=== PATIENT | female | born 1945 | race Caucasian/White ===

== ENCOUNTER 2019-01-12 09:44 | Outpatient (CLI) | payer MEDICARE ==
--- NOTE | 2019-01-12 10:46 | ULT ---
THYROID ULTRASOUND: HISTORY: Thyroid nodule. FINDINGS: Thyroid isthmus measures 0.2 cm. Right thyroid lobe measures 2.6 x 2.4 x 4.7 cm. Left thyroid lobe measures 1.7 x 1.7 x 4.2 cm. Multiple cystic nodules and solid nodules throughout the thyroid gland. [employer] solid nodule i n the thyroid gland measures 1.0 x 0.8 x 0.6 cm and is located in the lower pole of the left thyroid lobe. Secretary To [employer] solid nodule in the right thyroid lobe measures 1.0 x 1.0 x 0.7 cm and i s located in the mid pole. IMPRESSION: Multiple solid and cystic nodules throughout the thyroid gland. The solid nodules have a TI-RADS calc ulator score of TR3, mildly suspicious. Follow-up imaging in one year. Transcribed Date/Time: 01/12/2019 10:49 AM
== END 2019-01-12 09:45 | disposition home or self-care (01) ==
LOC: BICULT 09:44
PROVIDERS: ATTEND Nurse Practitioner Family
DX: E04.2 Nontoxic multinodular goiter (principal); R93.89 Abnormal findings on diagnostic imaging of other specified body structures
CPT/HCPCS: 76536

== ENCOUNTER 2019-01-17 09:23 | Outpatient (CLI) | payer MEDICARE ==
--- NOTE | 2019-01-17 09:44 | BD ---
EXAM: DEXA bone density examination HISTORY: 73-year-old postmenopausal female for screening COMPARISON: None FINDINGS: L1--bone mineral density 1.520 g/sq cm; T score 4.8 L2--bone mineral density 1.820 g/sq cm; T score 7.2 L3--bone mineral density 1.985 g/sq cm; T score 8.2 L4--bone mineral density 1.715 g/sq cm; T score 5. Total L1-L4--bone mineral density 1.758 g/sq cm; T score 6.5 Left femoral neck--bone mineral density0.845; T score 0.0 Total proximal left femur--bone mineral density 1.131; T score 1.5 IMPRESSION: Normal bone mineral density.
== END 2019-01-17 09:24 | disposition home or self-care (01) ==
LOC: BICMAMMO 09:23
PROVIDERS: ATTEND Nurse Practitioner Family
DX: Z13.820 Encounter for screening for osteoporosis (principal)
CPT/HCPCS: 77080

== ENCOUNTER 2019-09-22 06:22 | Outpatient (CLI) | payer MEDICARE, OTHER ==
[2019-09-22 13:58] LABS: INR-International Normal Ratio 0.9; PTT 27.4 sec (22.9-36.1); Prothrombin Time 12.5 sec (12.0-14.7)
[2019-09-22 14:10] LABS: Mean Corpuscular HGB CONC 32.4 g/dL (32.0-36.0); Mean Corpuscular Hemoglobin 32.2 pg (27.0-31.0); Mean Corpuscular Volume 99.5 fL (78.0-98.0); Mean Platelet Volume 7.5 fL (7.4-10.4); Platelet Count 241 thou/uL (130-400); RBC Distribution Width 12.4 % (11.5-14.5); Red Blood Cell (RBC) Count 4.36 mill/uL (4.20-5.40); White Blood Cell (WBC) Count 9.2 thou/uL (4.8-10.8)
[2019-09-22 15:43] LABS: Anion Gap 14 mmol/L (10-20); BUN (Urea Nitrogen) 28 mg/dL (9.8-20.1); Calc. Creatinine Clearance 0 mL/min (70-130); Calcium 10.2 mg/dL (7.8-10.44); Carbon Dioxide 24 mmol/L (23-31); Chloride 106 mmol/L (98-107); Estimated GFR-MDRD 33; Glucose 204 mg/dL (83-110); Potassium 4.4 mmol/L (3.5-5.1); Sodium 140 mmol/L (136-145)
[2019-09-23 12:14] LABS: SARS-CoV-2 MS2 Positive; SARS-CoV-2 N Gene Negative; SARS-CoV-2 S Gene Negative; SARS-CoV-2 orf1ab Negative
== END 2019-09-22 06:23 | disposition home or self-care (01) ==
LOC: LABBT 06:22
PROVIDERS: ATTEND Surgery
DX: Z01.818 Encounter for other preprocedural examination (principal); Z11.59 Encounter for screening for other viral diseases; M54.16 Radiculopathy, lumbar region; M48.061 Spinal stenosis, lumbar region without neurogenic claudication
CPT/HCPCS: 80048; 85027; 85610; 85730; 93005; U0003; 87635; 93010

== ENCOUNTER 2019-09-26 06:16 | Day surgery (SDC) | payer MEDICARE ==
[2019-09-20 09:33] VITALS: BMI 35.5
[2019-09-26] MEDS ORDERED: Thrombin 5000 UNITS/5 ML VIAL ONE (06:55)
[2019-09-26] MEDS ORDERED: Fentanyl 250 MCG/5 ML VIAL ONE (07:03)
[2019-09-26] MEDS ORDERED: Phenylephrine 10 MG/ML VIAL ONE (08:42)
[2019-09-26] MEDS ORDERED: SUGAMMADEX SODIUM 200 MG/2 ML VIAL ONE (09:40)
[2019-09-26] MEDS ORDERED: Promethazine HCl 25 MG/ML VIAL IM PRN (10:06)
[2019-09-26] MEDS ORDERED: PACU-Morphine 4MG/ML VIAL SLOW IVP PRN (10:06)
[2019-09-26] MEDS ORDERED: HYDROmorphone 2 MG/ML VIAL SLOW IVP PRN (10:06)
[2019-09-26] MEDS ORDERED: Ondansetron HCl/PF 4 MG/2 ML Vial IVP PRN (10:06)
[2019-09-26] MEDS ORDERED: Morphine Sulfate 2 MG/ML SYRINGE SLOW IVP PRN (10:06)
[2019-09-26] MEDS ORDERED: Promethazine HCl 25 MG/ML VIAL SLOW IVP PRN (10:06)
[2019-09-26] MEDS ORDERED: Mag-Al 1200 mg/1200 mg/30 ML UDCUP PO PRN (10:49)
[2019-09-26] MEDS ORDERED: Morphine 2 MG/ML VIAL SLOW IVP PRN (10:49)
[2019-09-26] MEDS ORDERED: traMADol HCl 50 MG TAB PO PRN (10:49)
[2019-09-26] MEDS ORDERED: Acetaminophen 325 MG TAB PO PRN (10:49)
[2019-09-26] MEDS ORDERED: Milk Of Magnesia 30 ML UDCUP PO PRN (10:49)
[2019-09-26] MEDS ORDERED: tiZANidine HCl 4 MG TAB PO PRN (10:49)
[2019-09-26] MEDS ORDERED: Ondansetron PF 4 MG/2 ML Vial IVP PRN (10:49)
[2019-09-26] MEDS ORDERED: HYDROcodone/Acetaminophen 7.5/325 mg Tablet PO PRN (10:49)
[2019-09-26] MEDS ORDERED: Bisacodyl 10 MG SUPP PR PRN (10:49)
[2019-09-26] MEDS ORDERED: Fleet Enema 133 ML BOT PR PRN (10:49)
[2019-09-26] MEDS ORDERED: diphenhydrAMINE 25 MG CAP PO PRN (10:49)
[2019-09-26] MEDS ORDERED: Furosemide 20 MG TAB PO PRN (10:51)
[2019-09-26] MEDS ORDERED: Fentanyl 100 MCG/2 ML VIAL ONE ×2 (11:06→12:05)
[2019-09-26] MEDS ORDERED: Dexamethasone 10 MG/ML VIAL SLOW IVP SCH (14:15)
[2019-09-26] MEDS: Acetaminophen/Codeine 30-300mg Tablet PO PRN ×3 (14:16→23:50)
[2019-09-26] MEDS ORDERED: PROPOFOL 200 MG/20 ML VIAL ONE (14:24)
[2019-09-26] MEDS ORDERED: PHENYLEPHRINE-NS 100 MCG/ML 10 ML SYRINGE ONE (14:24)
[2019-09-26] MEDS ORDERED: Rocuronium Bromide 10 MG/ML (10ML VIAL) ONE (14:24)
[2019-09-26] MEDS ORDERED: Ketorolac Tromethamine 30 MG/ML VIAL ONE (14:24)
[2019-09-26] MEDS ORDERED: Dexamethasone 20 MG/5 ML VIAL ONE (14:24)
[2019-09-26] MEDS ORDERED: Lidocaine 1% PF 5 ML VIAL ONE (14:24)
[2019-09-26] MEDS ORDERED: EPHEDRINE 25 MG/5 ML SYRINGE ONE (14:24)
[2019-09-26] MEDS ORDERED: Ondansetron PF 4 MG/2 ML Vial ONE (14:24)
[2019-09-26] MEDS ORDERED: Esmolol 100 MG/10 ML VIAL ONE (14:24)
[2019-09-26] MEDS ORDERED: Metoclopramide HCl 10 MG/2 ML VIAL ONE (14:24)
[2019-09-26] MEDS: Sodium Chloride 0.9% 1,000 ML IV SCH ×2 (15:00→23:47)
[2019-09-26] MEDS: CEFAZOLIN 2 GM in Premix Bag 1 BAG IVPB SCH ×2 (15:44→23:47)
[2019-09-26] MEDS ORDERED: LOVASTATIN 20 MG PO SCH (21:00)
[2019-09-27] MEDS: Acetaminophen/Codeine 30-300mg Tablet PO PRN ×2 (05:29→09:03)
--- NOTE | 2019-09-27 07:48 | OP ---
DATE OF PROCEDURE: 09/26/2019 BEAMSTER: Etta Celaya PA-C. LOCATION: OR 12. PREPROCEDURE DIAGNOSES: 1. Lumbar stenosis, neurogenic claudication. 2. Multilevel lumbar stenosis with low back and leg pain with right lower extremity weakness. POSTPROCEDURE DIAGNOSES: 1. Lumbar stenosis, neurogenic claudication. 2. Multilevel lumbar stenosis with low back and leg pain with right lower extremity weakness. PROCEDURES PERFORMED: L2-L3, L3-L4, L4-L5, and L5-S1 laminectomies, partial facetectomies, foraminotomies. DESCRIPTION OF PROCEDURE: After informed consent was obtained from the patient, the patient was brought to the OR. Proper patient, pause, and identification were carried out. She was placed under excellent general endotracheal anesthesia and positioned prone on the OR table. All appropriate points were padded. We identified the L2 through S1 dorsal spines. Linear edin was made over this region. This area was sterilely cleansed, prepared and draped. Proper patient, pause, and identification were carried out. The wound was then opened with a combination of sharp, monopolar, and blunt dissection. The L2, L3, L4, L5, and S1 dorsal spines and lamina were exposed. Localization film confirmed area of interest. We then performed L2, L3, L4, L5, and S1 laminectomies, partial facetectomies, foraminotomies. Excellent decompression of common dural tube and nerve roots. Copious irrigation occurred throughout as did maximizing hemostasis. The wound was then closed in anatomic layers following sprinkling of vancomycin powder. The patient emerged from anesthesia. Job ID: [id number]
[2019-09-27 08:06] VITALS: BP 111/52; TEMP 98.6
[2019-09-27] MEDS ORDERED: Amlodipine 10 MG TAB PO SCH (09:00)
[2019-09-27] MEDS ORDERED: Calcium Carbonate 600 MG + Vit D TAB PO SCH (09:00)
[2019-09-27] MEDS ORDERED: Loratadine 10 MG TAB PO SCH (09:00)
[2019-09-27] MEDS ORDERED: Losartan 25 MG TAB PO SCH (09:00)
[2019-09-27] MEDS ORDERED: Cholecalciferol 1,000 UNITS (25 MCG) TAB PO SCH (09:00)
--- NOTE | 2019-09-27 09:27 | PRG ---
DATE OF SERVICE: 09/27/2019 Ms. Evans is postoperative day 1 from multilevel lumbar decompression. She has met criteria for discharge. She will be discharged. Job ID: [id number]
== END 2019-09-27 11:00 | disposition home or self-care (01) ==
LOC: SDC 06:16 → ONC 10:49 → SDC 09-27 11:00
PROVIDERS: ATTEND Surgery
PROC: 00NY0ZZ Release Lumbar Spinal Cord, Open Approach (ICD-10-PCS; principal; 2019-09-26)
DX: M48.062 Spinal stenosis, lumbar region with neurogenic claudication (principal); M54.16 Radiculopathy, lumbar region; Z79.82 Long term (current) use of aspirin; Z79.899 Other long term (current) drug therapy; Z88.2 Allergy status to sulfonamides
CPT/HCPCS: 36416; 76000; J0690; J1100; J1885; J2370; J2405; J2704; J2765; J3010; J3370